=== PATIENT | female | born 1955 | race Caucasian/White ===

== ENCOUNTER → 2023-08-01 14:03 | Outpatient (REF) | payer MEDICARE, SELFPAY | LOC: WDC 14:03 | PROVIDERS: ATTENDING PHYSICIAN Physician Assistant Medical | DX: Z12.31 Encounter for screening mammogram for malignant neoplasm of breast (principal) | CPT/HCPCS: 77063; 77067 ==

== ENCOUNTER → 2024-08-02 08:06 | Outpatient (REF) | payer MEDICARE, SELFPAY | LOC: WDC 08:06 | PROVIDERS: ATTENDING PHYSICIAN Physician Assistant Medical | DX: Z12.31 Encounter for screening mammogram for malignant neoplasm of breast (principal) | CPT/HCPCS: 77063; 77067 ==